=== PATIENT | male | born 1990 | race Caucasian/White ===

== ENCOUNTER 2018-05-16 17:25 | Emergency (ER) | payer MEDICAID ==
[~2018-05-16] VITALS: Ht 172.7 cm; Wt 91.2 kg
[2018-05-16 17:41] VITALS: BP 134/89; Ht 172.7 cm; Wt 91.2 kg
== END 2018-05-16 19:51 | disposition home or self-care (01) ==
LOC: ED 17:25
DX: R51 Headache (principal); R11.10 Vomiting, unspecified; I10 Essential (primary) hypertension; F17.210 Nicotine dependence, cigarettes, uncomplicated
CPT/HCPCS: J1885

== ENCOUNTER 2018-06-28 00:39 | Inpatient (IN) | payer MEDICAID ==
[2018-06-28] VITALS (16 sets, daily range): BP systolic 120–144; BP diastolic 58–90
[~2018-06-28] VITALS: Ht 177.8 cm; Wt 88.9 kg
[2018-06-28 02:57] LABS: RED CELL DISTRIBUTION WIDTH 13.4 % (11.5-14.5)
[2018-06-28 03:06] LABS: PLATELET COUNT 434 x10^3mcL (130-400)
[2018-06-28 03:09] LABS: CALCIUM 8.9 mg/dL (8.5-10.1); CARBON DIOXIDE 30.2 mmol/L (21-32); CHLORIDE SERUM 103 mmol/L (98-107); CREATININE SERUM 1.4 mg/dL (0.7-1.3); GFR1 > 60 mL/min; GLUCOSE SERUM 104 mg/dL (74-106); POTASSIUM SERUM 3.1 mmol/L (3.5-5.1); SODIUM SERUM 145 mmol/L (136-145)
[2018-06-28 03:18] LABS: ALBUMIN 4.7 g/dL (3.4-5.0); ALKALINE PHOSPHATASE 72 U/L (46-116); ALT/SGPT 50 U/L (16-63); AST/SGOT 82 U/L (15-37); BILIRUBIN TOTAL 1.28 mg/dL (0.20-1.00); FREE T4 1.38 ng/dL (0.76-1.46)
[2018-06-28 03:21] LABS: TOTAL PROTEIN, SERUM 9.1 g/dL (6.4-8.2)
[2018-06-28 04:05] LABS: BAND NEUTROPHIL 2 % (0-10); MONOCYTE 2 % (0-7); SEGMENTED NEUTROPHILS 82 % (37-75)
[2018-06-28 04:42] LABS: rbc morphology (normal/abnorm) NORMAL (NORMAL)
[2018-06-28 05:39] LABS: UA SPECIFIC GRAVITY >=1.030 (1.005-1.035); microscopic required? YES; urine erythrocyte NEGATIVE (NEGATIVE)
[2018-06-28 05:49] LABS: AMPHETAMINE QUAL UR POSITIVE (See below)
[2018-06-28 06:48] LABS: CHOLESTEROL/HDL RATIO 4.4; MAGNESIUM 2.3 mg/dL (1.8-2.4); PHOSPHOROUS 4.7 mg/dL (2.5-4.9)
[2018-06-29] VITALS (18 sets, daily range): BP systolic 112–137; BP diastolic 54–74
[2018-06-29 06:00] LABS: CALCIUM 8.5 mg/dL (8.5-10.1); CARBON DIOXIDE 25.4 mmol/L (21-32); CHLORIDE SERUM 111 mmol/L (98-107); CREATININE SERUM 0.9 mg/dL (0.7-1.3); GFR1 > 60 mL/min; GLUCOSE SERUM 93 mg/dL (74-106); MAGNESIUM 2.5 mg/dL (1.8-2.4); PHOSPHOROUS 3.4 mg/dL (2.5-4.9); POTASSIUM SERUM 3.8 mmol/L (3.5-5.1); SODIUM SERUM 147 mmol/L (136-145)
[2018-06-29 06:09] LABS: BASOPHIL % 0.1 % (0-2); PLATELET COUNT 302 x10^3mcL (130-400); RED CELL DISTRIBUTION WIDTH 13.4 % (11.5-14.5)
[2018-06-30] VITALS (14 sets, daily range): BP systolic 104–167; BP diastolic 49–98; Ht 177.8 cm; Wt 88.9 kg
[2018-06-30 05:09] LABS: BASOPHIL % 0.2 % (0-2); PLATELET COUNT 295 x10^3mcL (130-400); RED CELL DISTRIBUTION WIDTH 13.8 % (11.5-14.5)
[2018-06-30 05:30] LABS: CALCIUM 8.4 mg/dL (8.5-10.1); CARBON DIOXIDE 28.1 mmol/L (21-32); CHLORIDE SERUM 113 mmol/L (98-107); CREATININE SERUM 0.7 mg/dL (0.7-1.3); GFR1 > 60 mL/min; GLUCOSE SERUM 81 mg/dL (74-106); MAGNESIUM 2.2 mg/dL (1.8-2.4); PHOSPHOROUS 3.2 mg/dL (2.5-4.9); POTASSIUM SERUM 3.9 mmol/L (3.5-5.1); SODIUM SERUM 146 mmol/L (136-145)
== END 2018-06-30 21:26 | disposition left against medical advice (07) | DRG 812 ==
LOC: ED 00:39 → IC 05:46
PROVIDERS: Emergency Medicine; Family Medicine
PROC: 5A1945Z Respiratory Ventilation, 24-96 Consecutive Hours (ICD-10-PCS; principal; 2018-06-28)
PROC: 0BH17EZ Insertion of Endotracheal Airway into Trachea, Via Natural or Artificial Opening (ICD-10-PCS; 2018-06-28)
DX: T43.621A Poisoning by amphetamines, accidental (unintentional), initial encounter (principal); N17.0 Acute kidney failure with tubular necrosis; J96.01 Acute respiratory failure with hypoxia; G92 Toxic encephalopathy; E72.20 Disorder of urea cycle metabolism, unspecified; M62.82 Rhabdomyolysis; F23 Brief psychotic disorder; E86.0 Dehydration; E87.6 Hypokalemia; R74.0 Nonspecific elevation of levels of transaminase and lactic acid dehydrogenase [LDH]; E78.00 Pure hypercholesterolemia, unspecified; D72.829 Elevated white blood cell count, unspecified; F15.10 Other stimulant abuse, uncomplicated; Z68.30 Body mass index [BMI] 30.0-30.9, adult; Y92.009 Unspecified place in unspecified non-institutional (private) residence as the place of occurrence of the external cause
CPT/HCPCS: 36600; 83880; 84439; 94150; A4628; G0480; J0696; J1200; J1630; J2060; J2250; J2704; J3010; J3475; J3480; J3490; J7030; Q0092

== ENCOUNTER 2018-08-02 15:23 | Inpatient (IN) | payer MEDICAID ==
[~2018-08-02] VITALS: Ht 170.2 cm; Wt 83.0 kg
[2018-08-02 15:27] VITALS: Ht 170.2 cm; Wt 83.0 kg
[2018-08-02 15:48] LABS: BASOPHIL % 0.4 % (0-2); PLATELET COUNT 391 x10^3mcL (130-400); RED CELL DISTRIBUTION WIDTH 13.4 % (11.5-14.5)
[2018-08-02 16:04] LABS: POTASSIUM SERUM 3.4 mmol/L (3.5-5.1)
[2018-08-02 16:10] LABS: CALCIUM 9.9 mg/dL (8.5-10.1); CARBON DIOXIDE 28.1 mmol/L (21-32); CHLORIDE SERUM 105 mmol/L (98-107); CREATININE SERUM 1.8 mg/dL (0.7-1.3); GFR1 48 mL/min; GLUCOSE SERUM 75 mg/dL (74-106); SODIUM SERUM 148 mmol/L (136-145)
[2018-08-02 16:17] LABS: ALBUMIN 4.8 g/dL (3.4-5.0); ALKALINE PHOSPHATASE 71 U/L (46-116); ALT/SGPT 55 U/L (16-63); AST/SGOT 52 U/L (15-37); BILIRUBIN TOTAL 0.92 mg/dL (0.20-1.00); TOTAL PROTEIN, SERUM 9.7 g/dL (6.4-8.2)
[2018-08-02 17:49] LABS: AMPHETAMINE QUAL UR POSITIVE (See below)
[2018-08-02 18:50] LABS: UA SPECIFIC GRAVITY >=1.030 (1.005-1.035); microscopic required? YES; urine erythrocyte NEGATIVE (NEGATIVE)
[2018-08-02 19:10] LABS: T3 TOTAL 1.61 ng/mL
[2018-08-02 19:14] LABS: CHOLESTEROL/HDL RATIO 4.2; MAGNESIUM 2.8 mg/dL (1.8-2.4); PHOSPHOROUS 4.9 mg/dL (2.5-4.9)
[2018-08-02 19:29] LABS: FREE T4 1.04 ng/dL (0.76-1.46)
[2018-08-02 21:31] VITALS: BP 143/124
[2018-08-02 23:40] VITALS: BP 122/77
[2018-08-03 03:53] VITALS: BP 119/87
[2018-08-03 04:56] LABS: BASOPHIL % 0.3 % (0-2); PLATELET COUNT 253 x10^3mcL (130-400); RED CELL DISTRIBUTION WIDTH 13.5 % (11.5-14.5)
[2018-08-03 05:20] LABS: CALCIUM 8.4 mg/dL (8.5-10.1); CARBON DIOXIDE 22.3 mmol/L (21-32); CHLORIDE SERUM 111 mmol/L (98-107); CREATININE SERUM 0.8 mg/dL (0.7-1.3); GFR1 > 60 mL/min; GLUCOSE SERUM 78 mg/dL (74-106); MAGNESIUM 2.4 mg/dL (1.8-2.4); PHOSPHOROUS 2.4 mg/dL (2.5-4.9); POTASSIUM SERUM 3.8 mmol/L (3.5-5.1); SODIUM SERUM 145 mmol/L (136-145)
[2018-08-03 07:57] VITALS: BP 120/72
[2018-08-03 15:40] VITALS: BP 114/57
[2018-08-03 19:17] VITALS: BP 121/59
[2018-08-03 23:02] VITALS: BP 122/65
[2018-08-04 03:04] VITALS: BP 114/52
[2018-08-04 05:12] VITALS: BP 120/64
[2018-08-04 06:23] LABS: BASOPHIL % 0.6 % (0-2); PLATELET COUNT 275 x10^3mcL (130-400); RED CELL DISTRIBUTION WIDTH 13.9 % (11.5-14.5)
[2018-08-04 06:37] LABS: CALCIUM 8.1 mg/dL (8.5-10.1); CARBON DIOXIDE 22.4 mmol/L (21-32); CHLORIDE SERUM 109 mmol/L (98-107); CREATININE SERUM 0.8 mg/dL (0.7-1.3); GFR1 > 60 mL/min; GLUCOSE SERUM 81 mg/dL (74-106); MAGNESIUM 2.1 mg/dL (1.8-2.4); PHOSPHOROUS 2.8 mg/dL (2.5-4.9); POTASSIUM SERUM 3.5 mmol/L (3.5-5.1); SODIUM SERUM 142 mmol/L (136-145)
[2018-08-04 07:30] VITALS: BP 116/64
== END 2018-08-04 20:02 | disposition left against medical advice (07) | DRG 812 ==
LOC: ED 15:23 → MU 17:44 → IC 17:44 → ED 17:44 → IC 20:50
PROVIDERS: Emergency Medicine; Internal Medicine
DX: T43.621A Poisoning by amphetamines, accidental (unintentional), initial encounter (principal); N17.0 Acute kidney failure with tubular necrosis; G92 Toxic encephalopathy; E83.41 Hypermagnesemia; M62.82 Rhabdomyolysis; E83.39 Other disorders of phosphorus metabolism; E87.0 Hyperosmolality and hypernatremia; R45.851 Suicidal ideations; R65.10 Systemic inflammatory response syndrome (SIRS) of non-infectious origin without acute organ dysfunction; F15.121 Other stimulant abuse with intoxication delirium; E87.6 Hypokalemia; E83.51 Hypocalcemia; E78.5 Hyperlipidemia, unspecified; Z68.28 Body mass index [BMI] 28.0-28.9, adult; Y92.410 Unspecified street and highway as the place of occurrence of the external cause
CPT/HCPCS: 82962; 83880; 84439; G0480; J1630; J2060; J3486; J7030; Q0092